=== PATIENT | male | born 1950 | race Asian ===

== ENCOUNTER 2018-09-10 11:51 | Emergency (ER) | payer OTHER ==
[~2018-09-10] VITALS: Ht 167.6 cm; Wt 65.9 kg
[2018-09-10] MEDS ORDERED: AMLO-511 PO (12:19)
[2018-09-10] MEDS ORDERED: ATOR20TA86 PO (12:19)
[2018-09-10] MEDS ORDERED: TAMS0.4C32 PO (12:19)
[2018-09-10] MEDS ORDERED: AZIT250T9 PO (12:19)
[2018-09-10] MEDS ORDERED: FERR-89 PO (12:19)
[2018-09-10] MEDS ORDERED: LOSA25TA41 PO (12:19)
[2018-09-10] MEDS ORDERED: LORA10TA7 PO (12:19)
[2018-09-10 12:24] LABS: GLUCOSE,POINT OF CARE 161 MG/DL (70-110)
[2018-09-10] MEDS ORDERED: SODIUM CHLORIDE 0.9% 1,000 ML IV ONE (14:30)
[2018-09-10] MEDS ORDERED: ONDANSETRON HCL 4 MG/2 ML VIAL IVP ONE (14:30)
[2018-09-10 14:44] LABS: BASOPHILS % (AUTO) 1.1 % (0.0-2.0); EOSINOPHILS % (AUTO) 7.1 % (1.0-6.0); HEMATOCRIT 40.3 % (41-53); HEMOGLOBIN 12.5 g/dL (13.5-17.5); LYMPHOCYTES # (AUTO) 1.7 K/uL (1.0-4.8); LYMPHOCYTES % (AUTO) 26.5 % (22.0-44.0); MEAN CORPUSCULAR HEMOGLOBIN 20.2 pg (26.0-34.0); MEAN CORPUSCULAR VOLUME 65 fL (80-100); MONOCYTES # (AUTO) 0.8 K/uL (0.1-1.0); MONOCYTES % (AUTO) 12.6 % (2.0-9.0); NEUTROPHILS # (AUTO) 3.5 K/uL (1.8-7.7); NEUTROPHILS % (AUTO) 52.7 % (40.0-70.0); PLATELET COUNT (AUTO) 290 K/uL (150-450); RED BLOOD CELL COUNT(AUTO) 6.18 MIL/uL (4.50-5.90); RED CELL DISTRIBUTION WIDTH 15.2 % (11.5-14.5)
[2018-09-10 14:56] LABS: ANION GAP 9 mmol/L (8-16); CALCIUM, TOTAL 8.7 mg/dL (8.8-10.5); CARBON DIOXIDE 29 mmol/L (22-29); CHLORIDE 102 mmol/L (98-107); CREATININE 1.06 mg/dL (0.60-1.30); GLOMERULAR FILTR. RATE CALC > 60 mL/min (>60); GLUCOSE,RANDOM 83 mg/dL (70-110); POTASSIUM 3.6 mmol/L (3.5-5.1); SODIUM SERUM 140 mmol/L (136-145); UREA NITROGEN, BLOOD 13 mg/dL (7-18)
[2018-09-10 15:02] LABS: ALANINE AMINOTRANSFERASE 30 U/L (12-78); ALBUMIN 3.8 g/dL (3.4-5.0); ALKALINE PHOSPHATASE 59 U/L (46-116); ASPARTATE AMINOTRANSFERASE 21 U/L (15-37); BILIRUBIN,TOTAL 0.4 mg/dL (0.1-1.0); LIPASE 200 U/L (73-393); TOTAL PROTEIN, SERUM 7.5 g/dL (6.4-8.2)
[2018-09-10 15:12] LABS: B-TYPE NATRIURETIC PEPTIDE 19 pg/mL (0-100)
[2018-09-10] MEDS ORDERED: KETOROLAC TROMETHAMINE 30 MG/ML VIAL IVP ONE (15:30)
[2018-09-10 15:34] LABS: INFLUENZA TYPE A NEGATIVE FOR TYPE A (NEGATIVE); INFLUENZA TYPE B NEGATIVE FOR TYPE B (NEGATIVE)
[2018-09-10] MEDS ORDERED: SODIUM CHLORIDE 0.9% 100 ML ONE (16:19)
[2018-09-10] MEDS ORDERED: IOVERSOL 320 MG/ML 100 ML VIAL ONE (16:19)
[2018-09-10] MEDS ORDERED: LEVOFLOXACIN 250 MG TABLET PO ONE (17:30)
[2018-09-10] MEDS ORDERED: BENZONATATE 100 MG CAPSULE PO ONE (17:30)
[2018-09-10 18:52] VITALS: BP 127/73
== END 2018-09-10 19:11 | disposition home or self-care (01) ==
LOC: EMS 11:52
DX: J18.9 Pneumonia, unspecified organism (principal); E78.00 Pure hypercholesterolemia, unspecified; I10 Essential (primary) hypertension
CPT/HCPCS: 36415; 71045; 71260; 80053; 82962; 83690; 83880; 84484; 85025; 87804; 93005; 96374; 96375; 99285; J1885; J2405; J7030; J7050; Q9967

== ENCOUNTER 2018-09-27 14:50 | Inpatient (IN) | payer OTHER ==
[~2018-09-27] VITALS: Ht 167.6 cm; Wt 63.3 kg
[~2018-09-27 14:50] MED LIST: AMLO-511 PO; ATOR20TA86 PO; AZIT250T9 PO; FERR-89 PO; LORA10TA7 PO; LOSA25TA41 PO; TAMS0.4C32 PO
[2018-09-27] MEDS ORDERED: IPRATROPIUM BROMIDE 0.5 MG/2.5 ML NEB SOLUTION NEB ONE ×2 (15:15→16:30)
[2018-09-27] MEDS ORDERED: ALBUTEROL SULFATE 2.5 MG/0.5 ML NEB SOLUTION NEB ONE ×2 (15:15→16:30)
[2018-09-27 15:50] LABS: BASOPHILS % (AUTO) 1.1 % (0.0-2.0); EOSINOPHILS % (AUTO) 5.7 % (1.0-6.0); HEMATOCRIT 42.6 % (41-53); HEMOGLOBIN 13.3 g/dL (13.5-17.5); LYMPHOCYTES # (AUTO) 1.1 K/uL (1.0-4.8); LYMPHOCYTES % (AUTO) 16.8 % (22.0-44.0); MEAN CORPUSCULAR HEMOGLOBIN 20.4 pg (26.0-34.0); MEAN CORPUSCULAR HGB CONC 31.3 G/dL (31.0-37.0); MEAN CORPUSCULAR VOLUME 65 fL (80-100); MONOCYTES # (AUTO) 0.6 K/uL (0.1-1.0); MONOCYTES % (AUTO) 9.9 % (2.0-9.0); NEUTROPHILS # (AUTO) 4.2 K/uL (1.8-7.7); NEUTROPHILS % (AUTO) 66.5 % (40.0-70.0); PLATELET COUNT (AUTO) 308 K/uL (150-450); RED BLOOD CELL COUNT(AUTO) 6.55 MIL/uL (4.50-5.90); RED CELL DISTRIBUTION WIDTH 15.6 % (11.5-14.5)
[2018-09-27 16:02] LABS: ANION GAP 8 mmol/L (8-16); CALCIUM, TOTAL 8.8 mg/dL (8.8-10.5); CARBON DIOXIDE 30 mmol/L (22-29); CHLORIDE 95 mmol/L (98-107); CREATININE 1.11 mg/dL (0.60-1.30); GLOMERULAR FILTR. RATE CALC > 60 mL/min (>60); GLUCOSE,RANDOM 128 mg/dL (70-110); POTASSIUM 3.7 mmol/L (3.5-5.1); SODIUM SERUM 133 mmol/L (136-145); UREA NITROGEN, BLOOD 11 mg/dL (7-18)
[2018-09-27 16:07] LABS: ALANINE AMINOTRANSFERASE 31 U/L (12-78); ALBUMIN 4.2 g/dL (3.4-5.0); ALKALINE PHOSPHATASE 57 U/L (46-116); ASPARTATE AMINOTRANSFERASE 25 U/L (15-37); BILIRUBIN,TOTAL 0.6 mg/dL (0.1-1.0); TOTAL PROTEIN, SERUM 7.9 g/dL (6.4-8.2)
[2018-09-27 16:13] LABS: B-TYPE NATRIURETIC PEPTIDE 13 pg/mL (0-100)
[2018-09-27 16:15] LABS: INFLUENZA TYPE A NEGATIVE FOR TYPE A (NEGATIVE); INFLUENZA TYPE B NEGATIVE FOR TYPE B (NEGATIVE)
[2018-09-27] MEDS ORDERED: MethylPREDNISolone SOD SUCC 125 MG/2 ML VIAL IVP ONE (16:15)
[2018-09-27 20:40] VITALS: BP 117/83
[2018-09-27] MEDS: MethylPREDNISolone SOD SUCC 125 MG/2 ML VIAL IVP SCH (23:25)
[2018-09-27] MEDS: ATORVASTATIN CALCIUM 20 MG TABLET PO SCH (23:25)
[2018-09-28 00:23] VITALS: BP 110/72
[2018-09-28] MEDS ORDERED: 0.9% SODIUM CHLORIDE 5 ML NEB SOLUTION NEB ONE (01:18)
[2018-09-28] MEDS: ALBUTEROL SULFATE 2.5 MG/0.5 ML NEB SOLUTION NEB PRN ×2 (01:23→08:20)
[2018-09-28] MEDS: IPRATROPIUM BROMIDE 0.5 MG/2.5 ML NEB SOLUTION NEB PRN ×2 (01:23→08:20)
[2018-09-28 04:17] VITALS: BP 114/70
[2018-09-28] MEDS: MethylPREDNISolone SOD SUCC 125 MG/2 ML VIAL IVP SCH ×4 (05:33→23:22)
[2018-09-28 07:35] VITALS: BP 128/76
[2018-09-28] MEDS: ASPIRIN 81 MG CHEWABLE TABLET PO SCH (08:05)
[2018-09-28 11:25] VITALS: BP 140/83
[2018-09-28 15:30] VITALS: BP 147/71
[2018-09-28] MEDS: IPRATROPIUM BROMIDE 0.5 MG/2.5 ML NEB SOLUTION NEB SCH ×2 (18:00→22:11)
[2018-09-28] MEDS: ALBUTEROL SULFATE 2.5 MG/0.5 ML NEB SOLUTION NEB SCH ×2 (18:00→22:11)
[2018-09-28 20:01] VITALS: BP 134/84
[2018-09-28] MEDS: ATORVASTATIN CALCIUM 20 MG TABLET PO SCH (20:09)
[2018-09-29 01:10] VITALS: BP 105/68
[2018-09-29] MEDS: ALBUTEROL SULFATE 2.5 MG/0.5 ML NEB SOLUTION NEB SCH ×5 (02:00→19:53)
[2018-09-29] MEDS: IPRATROPIUM BROMIDE 0.5 MG/2.5 ML NEB SOLUTION NEB SCH ×5 (02:00→19:53)
[2018-09-29 05:14] VITALS: BP 108/69
[2018-09-29] MEDS: MethylPREDNISolone SOD SUCC 125 MG/2 ML VIAL IVP SCH ×4 (05:25→23:26)
[2018-09-29 08:07] VITALS: BP 121/74
[2018-09-29] MEDS: ASPIRIN 81 MG CHEWABLE TABLET PO SCH (08:33)
[2018-09-29 11:49] LABS: ABG A-A DIFF O2 33.8 mmHg (10-20.0); ABG BASE EXCESS 0.2 mmol/L (-2.0-3.0); ABG CARBOXYHEMOGLOBIN 0.6 % (0.0-1.5); ABG HCO3 24.7 mmol/L (22.0-26.0); ABG METHEMOGLOBIN 0.3 % (0.0-1.5); ABG OXYGEN CONTENT 17.2 mL/dL (15.0-23.0); ABG OXYGEN SATURATION 94.7 % (95.0-98.0); ABG OXYHEMOGLOBIN 93.8 % (94.0-100.0); ABG PCO2 39 mmHg (35-45); ABG PH 7.421 (7.35-7.450); PO2, ARTERIAL BG 69.6 mmHg (79.0-87.0); SOURCE, BLOOD GAS ARTERIAL; TEMPERATURE, FAHRENHEIT, BG 98.2 FAHREN (96.0-98.6)
[2018-09-29 11:50] LABS: SITE, BLOOD GAS RT RADIAL
[2018-09-29 12:08] VITALS: BP 134/82
[2018-09-29] MEDS: AZITHROMYCIN 500 MG/NS 250 ML IV SCH (14:35)
[2018-09-29] MEDS: MONTELUKAST SODIUM 10 MG TABLET PO SCH (14:35)
[2018-09-29 15:36] VITALS: BP 123/82
[2018-09-29] MEDS: ATORVASTATIN CALCIUM 20 MG TABLET PO SCH (20:41)
[2018-09-29] MEDS: DOCUSATE SODIUM 100 MG CAPSULE PO SCH (20:41)
[2018-09-29 21:04] VITALS: BP 128/75
[2018-09-30 00:06] VITALS: BP 95/58
[2018-09-30] MEDS: IPRATROPIUM BROMIDE 0.5 MG/2.5 ML NEB SOLUTION NEB SCH ×3 (02:01→14:18)
[2018-09-30] MEDS: ALBUTEROL SULFATE 2.5 MG/0.5 ML NEB SOLUTION NEB SCH ×3 (02:01→14:18)
[2018-09-30 05:25] VITALS: BP 93/62
[2018-09-30] MEDS: MethylPREDNISolone SOD SUCC 125 MG/2 ML VIAL IVP SCH ×3 (05:25→16:50)
[2018-09-30 08:11] VITALS: BP 131/82
[2018-09-30] MEDS: ASPIRIN 81 MG CHEWABLE TABLET PO SCH (09:20)
[2018-09-30] MEDS: DOCUSATE SODIUM 100 MG CAPSULE PO SCH (09:20)
[2018-09-30] MEDS: MONTELUKAST SODIUM 10 MG TABLET PO SCH (09:20)
[2018-09-30 13:09] VITALS: BP 143/90
[2018-09-30] MEDS: AZITHROMYCIN 500 MG/NS 250 ML IV SCH (13:11)
[2018-09-30] MEDS ORDERED: AZIT250T9 PO (15:25)
[2018-09-30] MEDS ORDERED: PRED-284 PO (15:27)
[2018-09-30] MEDS ORDERED: ADV250 IH (15:29)
[2018-09-30] MEDS ORDERED: ALBU8HFA IH (15:29)
[2018-09-30] MEDS ORDERED: MONT10TA21 PO (15:29)
[2018-09-30 16:00] VITALS: BP 137/65
== END 2018-09-30 19:35 | disposition home or self-care (01) | DRG 140 ==
LOC: EMS 14:51 → 5N 19:01 → 6N 09-28 15:41
PROVIDERS: ADMIT Internal Medicine; ATTEND Internal Medicine
DX: J44.0 Chronic obstructive pulmonary disease with (acute) lower respiratory infection (principal); J96.01 Acute respiratory failure with hypoxia; J20.9 Acute bronchitis, unspecified; J44.1 Chronic obstructive pulmonary disease with (acute) exacerbation; E78.00 Pure hypercholesterolemia, unspecified; E78.5 Hyperlipidemia, unspecified; F17.200 Nicotine dependence, unspecified, uncomplicated; I10 Essential (primary) hypertension
CPT/HCPCS: 36600; 71250; 82805; 83605; 87040; 87804; 93005; 93306; 94640; 96374; G0378; J0456; J2930

== ENCOUNTER 2019-04-15 13:19 | Inpatient (IN) | payer OTHER ==
[~2019-04-15] VITALS: Ht 170.2 cm; Wt 61.3 kg
[~2019-04-15 13:19] MED LIST changes: +ADV250 IH; +ALBU8HFA IH; -AMLO-511 PO; +AMLO5TAB9 PO; +MONT10TA21 PO; +PRED-284 PO
[2019-04-15] MEDS ORDERED: IPRATROPIUM BROMIDE 0.5 MG/2.5 ML NEB SOLUTION NEB ONE (17:00)
[2019-04-15] MEDS ORDERED: MethylPREDNISolone SOD SUCC 125 MG/2 ML VIAL IVP ONE (17:00)
[2019-04-15] MEDS ORDERED: ALBUTEROL SULFATE 2.5 MG/0.5 ML NEB SOLUTION NEB ONE (17:00)
[2019-04-15] MEDS ORDERED: ALBUTEROL SULFATE 5 MG/ML 20 ML NEB SOLN [BULK] NEB ONE (17:00)
[2019-04-15 17:02] LABS: BASOPHILS % (AUTO) 1.2 % (0.0-2.0); HEMATOCRIT 37.3 % (41-53); HEMOGLOBIN 11.7 g/dL (13.5-17.5); LYMPHOCYTES # (AUTO) 1.3 K/uL (1.0-4.8); LYMPHOCYTES % (AUTO) 18.8 % (22.0-44.0); MEAN CORPUSCULAR HGB CONC 31.4 G/dL (31.0-37.0); MEAN CORPUSCULAR VOLUME 67 fL (80-100); MONOCYTES # (AUTO) 0.8 K/uL (0.1-1.0); MONOCYTES % (AUTO) 11.1 % (2.0-9.0); NEUTROPHILS # (AUTO) 4.6 K/uL (1.8-7.7); NEUTROPHILS % (AUTO) 64.9 % (40.0-70.0); PLATELET COUNT (AUTO) 334 K/uL (150-450); RED BLOOD CELL COUNT(AUTO) 5.59 MIL/uL (4.50-5.90); RED CELL DISTRIBUTION WIDTH 15.2 % (11.5-14.5)
[2019-04-15 17:27] LABS: CREATININE 1.31 mg/dL (0.60-1.30); POTASSIUM 3.3 mmol/L (3.5-5.1)
[2019-04-15 17:33] LABS: ALBUMIN 4.3 g/dL (3.4-5.0); BILIRUBIN,TOTAL 0.3 mg/dL (0.1-1.0); TOTAL PROTEIN, SERUM 7.4 g/dL (6.4-8.2)
[2019-04-15] MEDS ORDERED: AZITHROMYCIN 500 MG/NS 250 ML IV ONE (19:00)
[2019-04-15] MEDS ORDERED: 0.9% SODIUM CHLORIDE 10 ML SYRINGE IVP PRN (19:00)
[2019-04-15] MEDS ORDERED: ACETAMINOPHEN 325 MG TABLET PO PRN ×2 (19:00→19:30)
[2019-04-15] MEDS: ALBUTEROL SULFATE 2.5 MG/0.5 ML NEB SOLUTION NEB SCH ×2 (19:00→23:00)
[2019-04-15] MEDS ORDERED: ONDANSETRON HCL 4 MG/2 ML VIAL IVP PRN (19:00)
[2019-04-15] MEDS: IPRATROPIUM BROMIDE 0.5 MG/2.5 ML NEB SOLUTION NEB SCH ×2 (19:00→23:00)
[2019-04-15] MEDS ORDERED: POTASSIUM CHLORIDE 10% 40 MEQ/30 ML LIQUID UDCUP PO ONE (20:45)
[2019-04-15] MEDS: DOCUSATE SODIUM 100 MG CAPSULE PO SCH (21:00)
[2019-04-15 21:45] VITALS: BP 127/76
[2019-04-15] MEDS: TAMSULOSIN HCL 0.4 MG CAPSULE PO SCH (22:13)
[2019-04-15] MEDS: MethylPREDNISolone SOD SUCC 125 MG/2 ML VIAL IVP SCH (23:40)
[2019-04-16 00:15] VITALS: BP 127/71
[2019-04-16] MEDS: ALBUTEROL SULFATE 2.5 MG/0.5 ML NEB SOLUTION NEB SCH ×2 (03:00→07:15)
[2019-04-16] MEDS: IPRATROPIUM BROMIDE 0.5 MG/2.5 ML NEB SOLUTION NEB SCH ×2 (03:00→07:15)
[2019-04-16 05:20] VITALS: BP 105/64
[2019-04-16] MEDS: MethylPREDNISolone SOD SUCC 125 MG/2 ML VIAL IVP SCH ×4 (06:07→23:02)
[2019-04-16] MEDS ORDERED: ASPI-556 PO (07:15)
[2019-04-16 08:09] VITALS: BP 127/76
[2019-04-16] MEDS: DOCUSATE SODIUM 100 MG CAPSULE PO SCH ×2 (08:35→21:08)
[2019-04-16] MEDS: FAMOTIDINE 20 MG TABLET PO SCH (08:35)
[2019-04-16 11:36] VITALS: BP 112/69
[2019-04-16] MEDS ORDERED: POTASSIUM CHLORIDE 20 MEQ ER TABLET PO PRN (15:15)
[2019-04-16 15:38] VITALS: BP 134/74
[2019-04-16 19:30] VITALS: BP 135/77
[2019-04-16] MEDS: ALBUTEROL SULFATE 2.5 MG/0.5 ML NEB SOLUTION NEB PRN (20:46)
[2019-04-16] MEDS: IPRATROPIUM BROMIDE 0.5 MG/2.5 ML NEB SOLUTION NEB PRN (20:46)
[2019-04-16] MEDS: AZITHROMYCIN 500 MG/NS 250 ML IV SCH (21:06)
[2019-04-16] MEDS: TAMSULOSIN HCL 0.4 MG CAPSULE PO SCH (21:06)
[2019-04-17] VITALS (7 sets, daily range): BP systolic 97–133; BP diastolic 60–84
[2019-04-17] MEDS: MethylPREDNISolone SOD SUCC 125 MG/2 ML VIAL IVP SCH ×2 (05:47→11:14)
[2019-04-17 06:40] LABS: BASOPHILS % (AUTO) 0.1 % (0.0-2.0); EOSINOPHILS % (AUTO) 0 % (1.0-6.0); HEMATOCRIT 36.8 % (41-53); HEMOGLOBIN 11.4 g/dL (13.5-17.5); LYMPHOCYTES # (AUTO) 0.7 K/uL (1.0-4.8); LYMPHOCYTES % (AUTO) 3.6 % (22.0-44.0); MEAN CORPUSCULAR HEMOGLOBIN 20.5 pg (26.0-34.0); MEAN CORPUSCULAR HGB CONC 30.9 G/dL (31.0-37.0); MEAN CORPUSCULAR VOLUME 66 fL (80-100); MONOCYTES # (AUTO) 0.7 K/uL (0.1-1.0); MONOCYTES % (AUTO) 3.5 % (2.0-9.0); NEUTROPHILS # (AUTO) 18.7 K/uL (1.8-7.7); PLATELET COUNT (AUTO) 345 K/uL (150-450); RED BLOOD CELL COUNT(AUTO) 5.55 MIL/uL (4.50-5.90); RED CELL DISTRIBUTION WIDTH 15.1 % (11.5-14.5)
[2019-04-17 06:44] LABS: NEUTROPHILS % (AUTO) 92.8 % (40.0-70.0)
[2019-04-17 06:50] LABS: CALCIUM, TOTAL 8.9 mg/dL (8.8-10.5); CREATININE 1.38 mg/dL (0.60-1.30); HEMOGLOBIN A1C 6.7 % (4.5-6.2); POTASSIUM 4.1 mmol/L (3.5-5.1)
[2019-04-17] MEDS: DOCUSATE SODIUM 100 MG CAPSULE PO SCH ×2 (08:06→20:28)
[2019-04-17] MEDS: FAMOTIDINE 20 MG TABLET PO SCH (08:06)
[2019-04-17] MEDS: MethylPREDNISolone SOD SUCC 40 MG/ML VIAL IVP SCH (17:40)
[2019-04-17] MEDS: TAMSULOSIN HCL 0.4 MG CAPSULE PO SCH (20:28)
[2019-04-17] MEDS: AZITHROMYCIN 500 MG/NS 250 ML IV SCH (20:28)
[2019-04-17] MEDS ORDERED: 0.9% SODIUM CHLORIDE 5 ML NEB SOLUTION NEB ONE (21:56)
[2019-04-17] MEDS: ALBUTEROL SULFATE 2.5 MG/0.5 ML NEB SOLUTION NEB PRN (22:01)
[2019-04-17] MEDS: IPRATROPIUM BROMIDE 0.5 MG/2.5 ML NEB SOLUTION NEB PRN (22:01)
[2019-04-18] MEDS: MethylPREDNISolone SOD SUCC 40 MG/ML VIAL IVP SCH ×2 (00:49→05:28)
[2019-04-18 04:00] VITALS: BP 125/83
[2019-04-18 07:59] VITALS: BP 127/55
[2019-04-18] MEDS: DOCUSATE SODIUM 100 MG CAPSULE PO SCH (08:37)
[2019-04-18] MEDS: FAMOTIDINE 20 MG TABLET PO SCH (08:38)
== END 2019-04-18 09:20 | disposition home or self-care (01) | DRG 140 ==
LOC: EMS 13:19 → 5N 19:47 → 6N 21:33 → 5S 21:45 → 6N 04-16 19:01
PROVIDERS: ADMIT Internal Medicine; ATTEND Internal Medicine
DX: J44.1 Chronic obstructive pulmonary disease with (acute) exacerbation (principal); E11.22 Type 2 diabetes mellitus with diabetic chronic kidney disease; J44.0 Chronic obstructive pulmonary disease with (acute) lower respiratory infection; J20.9 Acute bronchitis, unspecified; N40.0 Benign prostatic hyperplasia without lower urinary tract symptoms; I12.9 Hypertensive chronic kidney disease with stage 1 through stage 4 chronic kidney disease, or unspecified chronic kidney disease; F17.210 Nicotine dependence, cigarettes, uncomplicated; N18.2 Chronic kidney disease, stage 2 (mild); E78.00 Pure hypercholesterolemia, unspecified; Z79.899 Other long term (current) drug therapy
CPT/HCPCS: 83036; 93005; 94060; 94640; 94644; J0456; J2920; J2930

== ENCOUNTER 2019-07-04 15:13 | Emergency (ER) | payer OTHER ==
[~2019-07-04] VITALS: Ht 167.6 cm; Wt 63.6 kg
[~2019-07-04 15:13] MED LIST changes: -AMLO5TAB9 PO; +ASPI-556 PO; -AZIT250T9 PO; -FERR-89 PO; -LORA10TA7 PO; -LOSA25TA41 PO; -MONT10TA21 PO; -PRED-284 PO; +TAMS-13 PO; -TAMS0.4C32 PO
[2019-07-04 15:51] LABS: GLUCOSE,POINT OF CARE 115 MG/DL (70-110)
[2019-07-04 17:25] LABS: BASOPHILS % (AUTO) 0.5 % (0.0-2.0); EOSINOPHILS % (AUTO) 0.4 % (1.0-6.0); HEMATOCRIT 38.4 % (41-53); LYMPHOCYTES # (AUTO) 0.9 K/uL (1.0-4.8); LYMPHOCYTES % (AUTO) 11.5 % (22.0-44.0); MEAN CORPUSCULAR HEMOGLOBIN 20.6 pg (26.0-34.0); MEAN CORPUSCULAR HGB CONC 31.3 G/dL (31.0-37.0); MEAN CORPUSCULAR VOLUME 66 fL (80-100); MONOCYTES # (AUTO) 0.8 K/uL (0.1-1.0); MONOCYTES % (AUTO) 9.4 % (2.0-9.0); NEUTROPHILS # (AUTO) 6.3 K/uL (1.8-7.7); NEUTROPHILS % (AUTO) 78.2 % (40.0-70.0); PLATELET COUNT (AUTO) 310 K/uL (150-450); RED BLOOD CELL COUNT(AUTO) 5.83 MIL/uL (4.50-5.90); RED CELL DISTRIBUTION WIDTH 15.2 % (11.5-14.5)
[2019-07-04 17:33] LABS: ANION GAP 7 mmol/L (8-16); CALCIUM, TOTAL 8.4 mg/dL (8.8-10.5); CARBON DIOXIDE 28 mmol/L (22-29); CHLORIDE 100 mmol/L (98-107); CREATININE 1.16 mg/dL (0.60-1.30); GLOMERULAR FILTR. RATE CALC > 60 mL/min (>60); GLUCOSE,RANDOM 120 mg/dL (70-110); POTASSIUM 3.7 mmol/L (3.5-5.1); SODIUM SERUM 135 mmol/L (136-145); UREA NITROGEN, BLOOD 18 mg/dL (7-18)
[2019-07-04 17:39] LABS: ALANINE AMINOTRANSFERASE 30 U/L (12-78); ALBUMIN 3.9 g/dL (3.4-5.0); ALKALINE PHOSPHATASE 62 U/L (46-116); ASPARTATE AMINOTRANSFERASE 26 U/L (15-37); BILIRUBIN,TOTAL 0.6 mg/dL (0.1-1.0); TOTAL PROTEIN, SERUM 7.3 g/dL (6.4-8.2)
[2019-07-04] MEDS ORDERED: ALBUTEROL SULFATE 2.5 MG/0.5 ML NEB SOLUTION NEB ONE (17:45)
[2019-07-04] MEDS ORDERED: IPRATROPIUM BROMIDE 0.5 MG/2.5 ML NEB SOLUTION NEB ONE (17:45)
[2019-07-04 17:46] LABS: B-TYPE NATRIURETIC PEPTIDE 23 pg/mL (0-100)
[2019-07-04] MEDS ORDERED: 0.9% SODIUM CHLORIDE 5 ML NEB SOLUTION NEB ONE (18:36)
[2019-07-04] MEDS ORDERED: PredniSONE 20 MG TABLET PO ONE (18:45)
[2019-07-04 21:50] VITALS: BP 133/77
== END 2019-07-04 21:50 | disposition home or self-care (01) ==
LOC: EMS 15:14
DX: J44.1 Chronic obstructive pulmonary disease with (acute) exacerbation (principal); J20.9 Acute bronchitis, unspecified; E11.9 Type 2 diabetes mellitus without complications; E78.00 Pure hypercholesterolemia, unspecified; I10 Essential (primary) hypertension; F17.210 Nicotine dependence, cigarettes, uncomplicated; Z98.890 Other specified postprocedural states; Z79.82 Long term (current) use of aspirin
CPT/HCPCS: 36415; 71046; 80053; 82962; 83880; 84484; 85025; 85610; 85730; 93005; 94640; 99285; G0480; J7512

== ENCOUNTER 2019-11-03 18:03 | Emergency (ER) | payer OTHER ==
[~2019-11-03] VITALS: Ht 167.6 cm; Wt 59.0 kg
[2019-11-03 18:18] LABS: GLUCOSE,POINT OF CARE 145 MG/DL (70-110)
[2019-11-03] MEDS ORDERED: ALBUTEROL SULFATE 2.5 MG/0.5 ML NEB SOLUTION NEB ONE (18:45)
[2019-11-03] MEDS ORDERED: IPRATROPIUM BROMIDE 0.5 MG/2.5 ML NEB SOLUTION NEB ONE (18:45)
[2019-11-03 19:06] LABS: BASOPHILS % (AUTO) 1.5 % (0.0-2.0); EOSINOPHILS % (AUTO) 10.1 % (1.0-6.0); HEMATOCRIT 37.2 % (41-53); HEMOGLOBIN 11.6 g/dL (13.5-17.5); LYMPHOCYTES # (AUTO) 1.8 K/uL (1.0-4.8); LYMPHOCYTES % (AUTO) 30.1 % (22.0-44.0); MEAN CORPUSCULAR HEMOGLOBIN 20.4 pg (26.0-34.0); MEAN CORPUSCULAR HGB CONC 31.2 G/dL (31.0-37.0); MEAN CORPUSCULAR VOLUME 65 fL (80-100); MONOCYTES # (AUTO) 0.7 K/uL (0.1-1.0); MONOCYTES % (AUTO) 12.3 % (2.0-9.0); NEUTROPHILS # (AUTO) 2.8 K/uL (1.8-7.7); PLATELET COUNT (AUTO) 305 K/uL (150-450); RED BLOOD CELL COUNT(AUTO) 5.68 MIL/uL (4.50-5.90); RED CELL DISTRIBUTION WIDTH 15.4 % (11.5-14.5)
[2019-11-03] MEDS ORDERED: ALBUTEROL SULFATE HFA 90 MCG/PUFF 8 GM INHALER IH ONE (19:15)
[2019-11-03 19:18] LABS: ANION GAP 10 mmol/L (8-16); CALCIUM, TOTAL 8.6 mg/dL (8.8-10.5); CARBON DIOXIDE 27 mmol/L (22-29); CHLORIDE 100 mmol/L (98-107); CREATININE 1.15 mg/dL (0.60-1.30); GLOMERULAR FILTR. RATE CALC > 60 mL/min (>60); GLUCOSE,RANDOM 125 mg/dL (70-110); POTASSIUM 3.8 mmol/L (3.5-5.1); SODIUM SERUM 137 mmol/L (136-145); UREA NITROGEN, BLOOD 15 mg/dL (7-18)
[2019-11-03 19:30] LABS: B-TYPE NATRIURETIC PEPTIDE 28 pg/mL (0-100)
[2019-11-03 19:40] LABS: ALANINE AMINOTRANSFERASE 28 U/L (12-78); ALBUMIN 3.9 g/dL (3.4-5.0); ALKALINE PHOSPHATASE 61 U/L (46-116); ASPARTATE AMINOTRANSFERASE 22 U/L (15-37); BILIRUBIN,TOTAL 0.4 mg/dL (0.1-1.0); CREATINE KINASE, TOTAL ONLY 403 U/L (39-308); TOTAL PROTEIN, SERUM 7.3 g/dL (6.4-8.2)
[2019-11-03 21:22] VITALS: BP 153/97
== END 2019-11-03 21:28 | disposition home or self-care (01) ==
LOC: EMS 18:04
DX: J44.1 Chronic obstructive pulmonary disease with (acute) exacerbation (principal); E11.9 Type 2 diabetes mellitus without complications; E78.00 Pure hypercholesterolemia, unspecified; I10 Essential (primary) hypertension; F17.210 Nicotine dependence, cigarettes, uncomplicated; Z79.82 Long term (current) use of aspirin
CPT/HCPCS: 87040; 93005; 94060; 94640; J3535

== ENCOUNTER 2020-04-17 22:35 | Emergency (ER) | payer OTHER ==
[~2020-04-17] VITALS: Ht 167.6 cm; Wt 65.9 kg
[2020-04-17] MEDS ORDERED: AMLO-257 PO (22:46)
[2020-04-17] MEDS ORDERED: LOSA50TA37 PO (22:46)
[2020-04-17] MEDS ORDERED: FERR-89 PO (22:46)
[2020-04-17] MEDS ORDERED: AMOX500C2 PO (22:46)
[2020-04-17] MEDS ORDERED: METF-960 PO (22:46)
[2020-04-17 23:05] LABS: GLUCOSE,POINT OF CARE 130 MG/DL (70-110)
[2020-04-17 23:20] LABS: BASOPHILS % (AUTO) 0.9 % (0.0-2.0); EOSINOPHILS % (AUTO) 14.3 % (1.0-6.0); HEMATOCRIT 36.5 % (41-53); HEMOGLOBIN 11.3 g/dL (13.5-17.5); LYMPHOCYTES # (AUTO) 1.8 K/uL (1.0-4.8); LYMPHOCYTES % (AUTO) 25.1 % (22.0-44.0); MEAN CORPUSCULAR HEMOGLOBIN 20.4 pg (26.0-34.0); MEAN CORPUSCULAR HGB CONC 30.9 G/dL (31.0-37.0); MEAN CORPUSCULAR VOLUME 66 fL (80-100); MONOCYTES # (AUTO) 0.9 K/uL (0.1-1.0); MONOCYTES % (AUTO) 13.1 % (2.0-9.0); NEUTROPHILS # (AUTO) 3.3 K/uL (1.8-7.7); NEUTROPHILS % (AUTO) 46.6 % (40.0-70.0); PLATELET COUNT (AUTO) 294 K/uL (150-450); RED BLOOD CELL COUNT(AUTO) 5.52 MIL/uL (4.50-5.90); RED CELL DISTRIBUTION WIDTH 15.3 % (11.5-14.5)
[2020-04-17 23:36] LABS: ANION GAP 5 mmol/L (8-16); CALCIUM, TOTAL 8.4 mg/dL (8.8-10.5); CARBON DIOXIDE 29 mmol/L (22-29); CHLORIDE 102 mmol/L (98-107); CREATININE 1.18 mg/dL (0.60-1.30); GLOMERULAR FILTR. RATE CALC > 60 mL/min (>60); GLUCOSE,RANDOM 152 mg/dL (70-110); POTASSIUM 3.2 mmol/L (3.5-5.1); SODIUM SERUM 136 mmol/L (136-145); UREA NITROGEN, BLOOD 14 mg/dL (7-18)
[2020-04-17 23:39] LABS: ALANINE AMINOTRANSFERASE 47 U/L (12-78); ALBUMIN 3.9 g/dL (3.4-5.0); ALKALINE PHOSPHATASE 48 U/L (46-116); ASPARTATE AMINOTRANSFERASE 35 U/L (15-37); BILIRUBIN,TOTAL 0.5 mg/dL (0.1-1.0); TOTAL PROTEIN, SERUM 7.3 g/dL (6.4-8.2)
[2020-04-17 23:42] LABS: B-TYPE NATRIURETIC PEPTIDE 25 pg/mL (0-100)
[2020-04-18] MEDS ORDERED: ALBUTEROL SULFATE HFA 90 MCG/PUFF 8 GM INHALER IH ONE
[2020-04-18] MEDS ORDERED: IPRATROPIUM BROMIDE HFA 17 MCG/PUFF 12.9 GM INHALER IH ONE
[2020-04-18] MEDS ORDERED: PredniSONE 20 MG TABLET PO ONE
[2020-04-18 00:56] VITALS: BP 133/74
== END 2020-04-18 01:01 | disposition home or self-care (01) ==
LOC: EMS 22:37
DX: J44.1 Chronic obstructive pulmonary disease with (acute) exacerbation (principal); Z20.828 Contact with and (suspected) exposure to other viral communicable diseases
CPT/HCPCS: 36415; 71045; 80053; 82962; 83880; 84484; 85025; 93005; 94640; 99285; J7512; U0003; J3535

== ENCOUNTER 2020-09-18 14:00 | Emergency (ER) | payer OTHER ==
[~2020-09-18] VITALS: Ht 170.2 cm; Wt 72.7 kg
[~2020-09-18 14:00] MED LIST changes: +AMLO-257 PO; +AMOX500C2 PO; +FERR-89 PO; +LOSA50TA37 PO; +METF-960 PO
[2020-09-18] MEDS ORDERED: ACETAMINOPHEN 500 MG TABLET PO ONE (14:30)
[2020-09-18 15:53] VITALS: BP 124/80
== END 2020-09-18 15:56 | disposition home or self-care (01) ==
LOC: EMS 14:04
DX: S40.021A Contusion of right upper arm, initial encounter (principal); J44.9 Chronic obstructive pulmonary disease, unspecified; E11.9 Type 2 diabetes mellitus without complications; E78.00 Pure hypercholesterolemia, unspecified; I10 Essential (primary) hypertension; F17.210 Nicotine dependence, cigarettes, uncomplicated; Z79.82 Long term (current) use of aspirin; Z79.84 Long term (current) use of oral hypoglycemic drugs; X58.XXXA Exposure to other specified factors, initial encounter; Y93.89 Activity, other specified; Y92.89 Other specified places as the place of occurrence of the external cause; Y99.8 Other external cause status

== ENCOUNTER 2020-10-02 14:49 | Emergency (ER) | payer OTHER ==
[~2020-10-02] VITALS: Ht 165.1 cm; Wt 63.6 kg
[~2020-10-02 14:49] MED LIST changes: -AMOX500C2 PO
[2020-10-02 16:40] VITALS: BP 121/79
== END 2020-10-02 17:01 | disposition home or self-care (01) ==
LOC: EMS 14:54
DX: M12.811 Other specific arthropathies, not elsewhere classified, right shoulder (principal); M25.811 Other specified joint disorders, right shoulder; J44.9 Chronic obstructive pulmonary disease, unspecified; E11.9 Type 2 diabetes mellitus without complications; E78.00 Pure hypercholesterolemia, unspecified; I10 Essential (primary) hypertension; F17.210 Nicotine dependence, cigarettes, uncomplicated; Z79.84 Long term (current) use of oral hypoglycemic drugs; Z79.82 Long term (current) use of aspirin
CPT/HCPCS: 99283

== ENCOUNTER 2022-03-03 16:52 | Emergency (ER) | payer OTHER ==
[~2022-03-03] VITALS: Ht 167.6 cm; Wt 77.3 kg
[~2022-03-03 16:52] MED LIST changes: -FERR-89 PO; +FERR325T27 PO; +LOSA-382 PO; -LOSA50TA37 PO; +METF-1211 PO; -METF-960 PO
[2022-03-03 18:31] LABS: GLUCOSE,POINT OF CARE 88 MG/DL (70-110)
[2022-03-03] MEDS ORDERED: DOCU100C33 PO (19:08)
[2022-03-03] MEDS ORDERED: ASPI-1444 PO (19:08)
[2022-03-03] MEDS ORDERED: LORA-997 PO (19:08)
[2022-03-03] MEDS ORDERED: MONT-40 PO (19:08)
[2022-03-03] MEDS ORDERED: FLUT1DIS4 IH (19:08)
[2022-03-03] MEDS ORDERED: IBUP-2070 PO (19:08)
[2022-03-03] MEDS ORDERED: PERTUSS(ACELL),DIPH,TET VAC/PF 0.5 ML SYRINGE IM. ONE (19:15)
[2022-03-03] MEDS ORDERED: LIDOCAINE 1% 10 ML VIAL ID ONE (20:00)
[2022-03-03] MEDS ORDERED: KETOROLAC TROMETHAMINE 30 MG/ML VIAL IM ONE (20:15)
[2022-03-03 20:42] VITALS: BP 132/78
== END 2022-03-03 20:54 | disposition home or self-care (01) ==
LOC: EMS 16:54
DX: S01.312A Laceration without foreign body of left ear, initial encounter (principal); E11.9 Type 2 diabetes mellitus without complications; E78.00 Pure hypercholesterolemia, unspecified; E78.5 Hyperlipidemia, unspecified; F10.20 Alcohol dependence, uncomplicated; F17.210 Nicotine dependence, cigarettes, uncomplicated; I10 Essential (primary) hypertension; J44.9 Chronic obstructive pulmonary disease, unspecified; W19.XXXA Unspecified fall, initial encounter; Y93.89 Activity, other specified; Y92.89 Other specified places as the place of occurrence of the external cause; Y99.8 Other external cause status
CPT/HCPCS: 12011; 70450; 82962; 90471; 90715; 96372; 99284; J1885; J3490

== ENCOUNTER 2022-03-05 13:15 | Emergency (ER) | payer OTHER ==
[~2022-03-05] VITALS: Ht 167.6 cm; Wt 68.2 kg
[~2022-03-05 13:15] MED LIST changes: -ADV250 IH; +ASPI-1444 PO; -ASPI-556 PO; +DOCU100C33 PO; +FLUT1DIS4 IH; +IBUP-2070 PO; +LORA-997 PO; +MONT-40 PO
[2022-03-05 13:18] VITALS: BP 142/82
[2022-03-05] MEDS ORDERED: BACITRACIN 0.9 GM PACKET OINTMENT TP ONE (14:00)
== END 2022-03-05 14:15 | disposition home or self-care (01) ==
LOC: EMS 13:16
DX: Z48.01 Encounter for change or removal of surgical wound dressing (principal); F10.20 Alcohol dependence, uncomplicated; F17.210 Nicotine dependence, cigarettes, uncomplicated; J44.9 Chronic obstructive pulmonary disease, unspecified; E11.9 Type 2 diabetes mellitus without complications; E78.00 Pure hypercholesterolemia, unspecified; I10 Essential (primary) hypertension
CPT/HCPCS: 99283

== ENCOUNTER 2022-03-10 10:34 | Emergency (ER) | payer OTHER ==
[~2022-03-10] VITALS: Ht 167.6 cm; Wt 63.6 kg
[2022-03-10 11:50] VITALS: BP 141/77
== END 2022-03-10 12:14 | disposition home or self-care (01) ==
LOC: EMS 10:36
DX: S01.312D Laceration without foreign body of left ear, subsequent encounter (principal); X58.XXXD Exposure to other specified factors, subsequent encounter; E11.9 Type 2 diabetes mellitus without complications; E78.00 Pure hypercholesterolemia, unspecified; F10.20 Alcohol dependence, uncomplicated; F17.210 Nicotine dependence, cigarettes, uncomplicated; I10 Essential (primary) hypertension; J44.1 Chronic obstructive pulmonary disease with (acute) exacerbation
CPT/HCPCS: 99281; Z7502

== ENCOUNTER 2022-07-17 20:33 | Emergency (ER) | payer OTHER ==
[~2022-07-17] VITALS: Ht 167.6 cm; Wt 63.6 kg
[2022-07-17 20:38] VITALS: BP 134/82
[2022-07-17] MEDS ORDERED: VALA500T42 PO (22:25)
[2022-07-17] MEDS ORDERED: HYDR-4723 PO (22:25)
[2022-07-17] MEDS ORDERED: POLY238P PO (22:25)
[2022-07-17] MEDS ORDERED: PRED-554 PO (22:25)
[2022-07-17] MEDS ORDERED: HYDROCODONE/ACETAMINOPHEN 5-325 MG TABLET PO ONE (22:30)
[2022-07-17] MEDS ORDERED: ValACYclovir HCL 500 MG TABLET PO ONE (22:30)
== END 2022-07-17 23:37 | disposition home or self-care (01) ==
LOC: EMS 20:33
DX: B02.9 Zoster without complications (principal); E11.9 Type 2 diabetes mellitus without complications; E78.00 Pure hypercholesterolemia, unspecified; F10.20 Alcohol dependence, uncomplicated; F17.210 Nicotine dependence, cigarettes, uncomplicated; J44.9 Chronic obstructive pulmonary disease, unspecified; I10 Essential (primary) hypertension
CPT/HCPCS: 99283

== ENCOUNTER 2022-12-16 19:01 | Emergency (ER) | payer OTHER ==
[~2022-12-16] VITALS: Ht 167.6 cm; Wt 63.6 kg
[~2022-12-16 19:01] MED LIST changes: +ALBU18HF12 IH; -ALBU8HFA IH; +HYDR-4723 PO; +POLY238P PO; +PRED-554 PO; +VALA500T42 PO
[2022-12-16] MEDS ORDERED: FLUT1AER11 IH (19:09)
[2022-12-16] MEDS ORDERED: ALBUTEROL SULFATE HFA 90 MCG/PUFF 8 GM INHALER IH ONE (20:00)
[2022-12-16 20:31] LABS: COVID AG,FIA SOURCE NASAL SWAB
[2022-12-16 20:48] LABS: INFLUENZA TYPE A NEGATIVE FOR TYPE A (NEGATIVE); INFLUENZA TYPE B NEGATIVE FOR TYPE B (NEGATIVE)
[2022-12-16] MEDS ORDERED: AZITHROMYCIN 500 MG TABLET PO ONE (22:45)
[2022-12-16] MEDS ORDERED: AZIT250T9 PO (22:45)
[2022-12-16 23:06] VITALS: BP 131/74
== END 2022-12-16 23:18 | disposition home or self-care (01) ==
LOC: EMS 19:03
DX: J45.901 Unspecified asthma with (acute) exacerbation (principal); J98.4 Other disorders of lung; J44.9 Chronic obstructive pulmonary disease, unspecified; E11.9 Type 2 diabetes mellitus without complications; E78.00 Pure hypercholesterolemia, unspecified; I10 Essential (primary) hypertension; Z87.891 Personal history of nicotine dependence; Z20.822 Contact with and (suspected) exposure to COVID-19
CPT/HCPCS: 99284; 71045; 87426; 82962; 87804; 94640; Q9967; J3535

== ENCOUNTER 2023-09-16 13:17 | Emergency (ER) | payer MEDICAID, OTHER ==
[~2023-09-16] VITALS: Ht 170.2 cm; Wt 61.4 kg
[~2023-09-16 13:17] MED LIST changes: +ATOR20TA PO; -ATOR20TA86 PO; +FLUT1AER11 IH; -FLUT1DIS4 IH; -PRED-554 PO; -TAMS-13 PO; +TAMS0.4C94 PO
[2023-09-16] MEDS ORDERED: ACET-3385 PO (13:25)
[2023-09-16] MEDS ORDERED: ALBUTEROL SULFATE HFA 90 MCG/PUFF 8 GM INHALER IH ONE (15:45)
[2023-09-16 16:34] LABS: COVID AG,FIA SOURCE NASAL SWAB
[2023-09-16 16:53] LABS: SARS-COV2 (COVID) ANTIGEN,FIA Negative (Negative)
[2023-09-16 16:54] LABS: INFLUENZA TYPE A NEGATIVE FOR TYPE A (NEGATIVE); INFLUENZA TYPE B NEGATIVE FOR TYPE B (NEGATIVE)
[2023-09-16 16:56] LABS: RESPIRATORY SYNCYTIAL VIRS,FIA NEGATIVE (Negative)
[2023-09-16 18:28] VITALS: TEMP 98.3
[2023-09-16 18:37] VITALS: BP 125/82; PULSE 78; RESP 16
== END 2023-09-16 18:43 | disposition home or self-care (01) ==
LOC: EMS 13:55
DX: J45.901 Unspecified asthma with (acute) exacerbation (principal); E11.9 Type 2 diabetes mellitus without complications; E78.00 Pure hypercholesterolemia, unspecified; I10 Essential (primary) hypertension; Z87.891 Personal history of nicotine dependence; Z20.822 Contact with and (suspected) exposure to COVID-19
CPT/HCPCS: 99284; 71046; 87426; 87420; 87804; 94640; J3535

== ENCOUNTER 2024-08-16 17:41 | Emergency (ER) | payer MEDICAID ==
[~2024-08-16] VITALS: Ht 167.6 cm; Wt 61.4 kg
[~2024-08-16 17:41] MED LIST changes: +ACET-3385 PO; -FLUT1AER11 IH; +FLUT1AER13 IH; +HYDR-4062 PO; -HYDR-4723 PO
[2024-08-16] MEDS ORDERED: EMPA10TA3 PO (17:52)
[2024-08-16] MEDS ORDERED: EZET10TA57 PO (17:52)
[2024-08-16 18:06] LABS: GLUCOMETER DEV NAME(LOC) ERT.6; GLUCOSE,POINT OF CARE 92 MG/DL (70-110)
[2024-08-16 18:19] VITALS: TEMP 98.2
[2024-08-16 19:24] LABS: BASOPHILS % (AUTO) 1.8 % (0.0-2.0); EOSINOPHILS % (AUTO) 7.2 % (1.0-6.0); HEMATOCRIT 40.4 % (41-53); HEMOGLOBIN 12.7 g/dL (13.5-17.5); LYMPHOCYTES # (AUTO) 1.5 K/uL (1.0-4.8); LYMPHOCYTES % (AUTO) 25.7 % (22.0-44.0); MEAN CORPUSCULAR HEMOGLOBIN 21.3 pg (26.0-34.0); MEAN CORPUSCULAR HGB CONC 31.4 G/dL (31.0-37.0); MEAN CORPUSCULAR VOLUME 68 fL (80-100); MONOCYTES # (AUTO) 0.7 K/uL (0.1-1.0); MONOCYTES % (AUTO) 12.7 % (2.0-9.0); NEUTROPHILS # (AUTO) 3.1 K/uL (1.8-7.7); NEUTROPHILS % (AUTO) 52.6 % (40.0-70.0); PLATELET COUNT (AUTO) 259 K/uL (150-450); RED BLOOD CELL COUNT(AUTO) 5.95 MIL/uL (4.50-5.90); RED CELL DISTRIBUTION WIDTH 15.8 % (11.5-14.5); WHITE BLOOD COUNT (AUTO) 5.8 K/uL (4.5-11.0)
[2024-08-16] MEDS: ALBUTEROL SULFATE 2.5 MG/0.5 ML NEB SOLUTION NEB ONE (19:28)
[2024-08-16] MEDS: IPRATROPIUM BROMIDE 0.5 MG/2.5 ML NEB SOLUTION NEB ONE (19:28)
[2024-08-16 19:30] VITALS: PULSE 60; RESP 22; O2SAT 97
[2024-08-16 19:32] LABS: CALCIUM, TOTAL 8.5 mg/dL (8.8-10.5); CREATININE 1.24 mg/dL (0.60-1.30); POTASSIUM 3.4 mmol/L (3.5-5.1)
[2024-08-16 19:40] LABS: TROPONIN I-HIGH SENSITIVITY 14 ng/L (<76)
[2024-08-16 19:49] LABS: RBC MORPHOLOGY COMMENT ABNORMAL RBC MORPH
[2024-08-16 19:49] LABS: COVID AG,FIA SOURCE NASAL SWAB
[2024-08-16] MEDS: PredniSONE 20 MG TABLET PO ONE (20:00)
[2024-08-16 20:24] LABS: INFLUENZA TYPE A NEGATIVE FOR TYPE A (NEGATIVE); INFLUENZA TYPE B NEGATIVE FOR TYPE B (NEGATIVE); SARS-COV2 (COVID) ANTIGEN,FIA Negative (Negative)
[2024-08-16 20:56] VITALS: BP 173/94; PULSE 60; RESP 20; O2SAT 97
[2024-08-16] MEDS ORDERED: PRED-554 PO (21:11)
[2024-08-16] MEDS ORDERED: BUDE10.27 IH (21:11)
== END 2024-08-16 21:22 | disposition home or self-care (01) ==
LOC: EMS 17:45
DX: J45.901 Unspecified asthma with (acute) exacerbation (principal); E11.9 Type 2 diabetes mellitus without complications; I10 Essential (primary) hypertension; E78.00 Pure hypercholesterolemia, unspecified; Z79.82 Long term (current) use of aspirin; Z79.899 Other long term (current) drug therapy; Z20.822 Contact with and (suspected) exposure to COVID-19
CPT/HCPCS: 99285; 71045; 87426; 80048; 82962; 83880; 84484; 85025; 87804; 36415; 94640; 93005; J7512; J7613

== ENCOUNTER 2025-03-09 08:59 | Inpatient (IN) | payer MEDICAID ==
[~2025-03-09] VITALS: Ht 167.6 cm; Wt 60.0 kg
[2025-03-09] VITALS (8 sets, daily range): BP systolic 139–148; BP diastolic 78–88; PULSE 64–90; RESP 19–23; TEMP 97.3–98.2; O2SAT 94–100
[~2025-03-09 08:59] MED LIST changes: -ACET-3385 PO; +BUDE10.27 IH; +EMPA10TA3 PO; +EZET10TA57 PO; -FLUT1AER13 IH; -IBUP-2070 PO; -METF-1211 PO; -MONT-40 PO; -POLY238P PO; +PRED-554 PO; -VALA500T42 PO
[2025-03-09 10:05] LABS: PLATELET COUNT (AUTO) 287 K/uL (150-450); RED BLOOD CELL COUNT(AUTO) 6.06 MIL/uL (4.50-5.90); RED CELL DISTRIBUTION WIDTH 15.8 % (11.5-14.5); WHITE BLOOD COUNT (AUTO) 5.5 K/uL (4.5-11.0)
[2025-03-09 10:15] LABS: CALCIUM, TOTAL 8.6 mg/dL (8.8-10.5); CREATININE 1.00 mg/dL (0.60-1.30); GLOMERULAR FILTR. RATE CALC > 60 mL/min (>60); GLUCOSE,RANDOM 123 mg/dL (70-110); SODIUM SERUM 137 mmol/L (136-145); UREA NITROGEN, BLOOD 20 mg/dL (7-18)
[2025-03-09] MEDS: ALBUTEROL SULFATE 2.5 MG/0.5 ML NEB SOLUTION NEB ONE ×2 (10:22→11:13)
[2025-03-09] MEDS: IPRATROPIUM BROMIDE 0.5 MG/2.5 ML NEB SOLUTION NEB ONE ×2 (10:22→11:13)
[2025-03-09 10:24] LABS: TROPONIN I-HIGH SENSITIVITY 9 ng/L (<76)
[2025-03-09] MEDS: AZITHROMYCIN 500 MG/NS 250 ML IV ONE (12:40)
[2025-03-09] MEDS: CefTRIAXone 1 GM/DEXTROSE 50 ML IV ONE (12:40)
[2025-03-09] MEDS: AZITHROMYCIN 500 MG/NS 250 ML IV SCH (13:14)
[2025-03-09] MEDS ORDERED: ONDANSETRON HCL 4 MG/2 ML VIAL IVP PRN (13:15)
[2025-03-09] MEDS ORDERED: ACETAMINOPHEN 325 MG TABLET PO PRN (13:15)
[2025-03-09] MEDS: HEPARIN SODIUM,PORCINE 5,000 UNITS/ML VIAL SQ SCH (15:16)
[2025-03-09] MEDS: IPRATROPIUM BROMIDE 0.5 MG/2.5 ML NEB SOLUTION NEB PRN (23:34)
[2025-03-09] MEDS: ALBUTEROL SULFATE 2.5 MG/0.5 ML NEB SOLUTION NEB PRN (23:34)
[2025-03-10] VITALS (7 sets, daily range): BP systolic 113–135; BP diastolic 71–88; PULSE 69–91; RESP 16–20; TEMP 97.4–98; O2SAT 94–98
[2025-03-10 06:33] LABS: PLATELET COUNT (AUTO) 304 K/uL (150-450); RED BLOOD CELL COUNT(AUTO) 6.03 MIL/uL (4.50-5.90); RED CELL DISTRIBUTION WIDTH 15.5 % (11.5-14.5); WHITE BLOOD COUNT (AUTO) 10.6 K/uL (4.5-11.0)
[2025-03-10 06:43] LABS: CALCIUM, TOTAL 8.8 mg/dL (8.8-10.5); CREATININE 0.91 mg/dL (0.60-1.30); GLOMERULAR FILTR. RATE CALC > 60 mL/min (>60); GLUCOSE,RANDOM 126 mg/dL (70-110); SODIUM SERUM 137 mmol/L (136-145); UREA NITROGEN, BLOOD 21 mg/dL (7-18)
[2025-03-10 06:59] LABS: RBC MORPHOLOGY COMMENT ABNORMAL RBC MORPH
[2025-03-10] MEDS ORDERED: PRED-554 PO (11:35)
[2025-03-10] MEDS ORDERED: SODIUM CHLORIDE 0.9% 250 ML IV ONE (14:47)
[2025-03-10] MEDS: AZITHROMYCIN 500 MG/NS 250 ML IV SCH (15:12)
[2025-03-11 02:07] LABS: HEPATITIS C AB (EIA) Non Reactive (Non Reactive)
[2025-03-11 10:27] LABS: GLUCOMETER DEV NAME(LOC) 5N.1D; GLUCOSE,POINT OF CARE 166 MG/DL (70-110)
== END 2025-03-10 16:40 | disposition home or self-care (01) | DRG 139 ==
LOC: EMS 09:01 → EDH 13:05 → 5S 17:31
PROVIDERS: ADMIT Internal Medicine; ATTEND Internal Medicine
DX: J18.9 Pneumonia, unspecified organism (principal); J96.90 Respiratory failure, unspecified, unspecified whether with hypoxia or hypercapnia; E43 Unspecified severe protein-calorie malnutrition; J44.0 Chronic obstructive pulmonary disease with (acute) lower respiratory infection; J44.1 Chronic obstructive pulmonary disease with (acute) exacerbation; J45.901 Unspecified asthma with (acute) exacerbation; E78.00 Pure hypercholesterolemia, unspecified; E11.9 Type 2 diabetes mellitus without complications; I10 Essential (primary) hypertension; Z86.11 Personal history of tuberculosis; Z87.891 Personal history of nicotine dependence; Z79.899 Other long term (current) drug therapy; Z82.49 Family history of ischemic heart disease and other diseases of the circulatory system; Z83.3 Family history of diabetes mellitus; Z79.82 Long term (current) use of aspirin; Z68.21 Body mass index [BMI] 21.0-21.9, adult
CPT/HCPCS: 71045; 71250; 80048; 82962; 83735; 83880; 84484; 85025; 86803; 87340; 93005; 94640; 94760; 96374; 99285; J0456; J0696; J1644; J2919; J7050; 36415-L1; 36415-TC; J7613

== ENCOUNTER 2025-08-10 10:12 | Emergency (ER) | payer MEDICARE, MEDICAID ==
[~2025-08-10] VITALS: Ht 167.6 cm; Wt 68.2 kg
[~2025-08-10 10:12] MED LIST changes: -AMLO-257 PO; +AZIT-164 PO; -EZET10TA57 PO; -FERR325T27 PO; -HYDR-4062 PO; -LORA-997 PO; -LOSA-382 PO
[2025-08-10 10:15] VITALS: BP 142/83; TEMP 97.6; O2SAT 97
[2025-08-10] MEDS: ALBUTEROL SULFATE 2.5 MG/0.5 ML NEB SOLUTION NEB ONE (10:45)
[2025-08-10] MEDS: IPRATROPIUM BROMIDE 0.5 MG/2.5 ML NEB SOLUTION NEB ONE ×2 (10:45→12:15)
[2025-08-10 10:46] VITALS: PULSE 67; RESP 22; O2SAT 98
[2025-08-10 10:50] VITALS: PULSE 67; RESP 22; O2SAT 98
[2025-08-10 11:01] VITALS: PULSE 61; RESP 20; O2SAT 100
[2025-08-10 11:03] LABS: BAND NEUTROPHILS % (MANUAL) 0 % (0-5)
[2025-08-10 11:11] LABS: CALCIUM, TOTAL 8.7 mg/dL (8.8-10.5); CREATININE 1.19 mg/dL (0.60-1.30); GLOMERULAR FILTR. RATE CALC 60.0 mL/min (>60); GLUCOSE,RANDOM 124.0 mg/dL (70-110); SODIUM SERUM 135.0 mmol/L (136-145); UREA NITROGEN, BLOOD 13.0 mg/dL (7-18)
[2025-08-10 11:15] LABS: PLATELET COUNT (AUTO) 271 K/uL (150-450); RED BLOOD CELL COUNT(AUTO) 6.01 MIL/uL (4.50-5.90); RED CELL DISTRIBUTION WIDTH 15.4 % (11.5-14.5); WHITE BLOOD COUNT (AUTO) 4.3 K/uL (4.5-11.0)
[2025-08-10 11:50] LABS: BASOPHILS % (MANUAL) 1 % (0-2); EOSINOPHILS % (MANUAL) 1 % (1-6); LYMPHOCYTES % (MANUAL) 15 % (22-44); MONOCYTES % (MANUAL) 10 % (2-9); REACTIVE LYMPHOCYTES 1 % (0-0); SEGMENTED NEUTROPHILS % 72 % (40-70)
[2025-08-10] MEDS ORDERED: 0.9% SODIUM CHLORIDE 15 ML NEB SOLUTION NEB ONE (12:13)
[2025-08-10] MEDS: ALBUTEROL SULFATE 2.5 MG/0.5 ML 5 ML NEB SOLUTION NEB ONE (12:15)
[2025-08-10 12:16] VITALS: PULSE 69; RESP 24; O2SAT 98
[2025-08-10 13:28] VITALS: PULSE 97; RESP 20; O2SAT 100
[2025-08-10] MEDS ORDERED: PRED-554 PO (14:16)
[2025-08-10] MEDS: ALBUTEROL SULFATE HFA 90 MCG/PUFF 8 GM INHALER IH ONE (14:26)
== END 2025-08-10 14:37 | disposition home or self-care (01) ==
LOC: EMS 10:12
DX: J44.1 Chronic obstructive pulmonary disease with (acute) exacerbation (principal); J45.901 Unspecified asthma with (acute) exacerbation; E11.9 Type 2 diabetes mellitus without complications; E78.00 Pure hypercholesterolemia, unspecified; I10 Essential (primary) hypertension; J84.10 Pulmonary fibrosis, unspecified; Z87.891 Personal history of nicotine dependence; Z79.51 Long term (current) use of inhaled steroids; Z79.52 Long term (current) use of systemic steroids; Z79.82 Long term (current) use of aspirin; Z79.899 Other long term (current) drug therapy
CPT/HCPCS: 99285; 96374; 71045; 80048; 85007; 85027; 36415; 94644; 93005; J2919; J3535; 94060; 94640; J7613